=== PATIENT | male | born 1985 | race Caucasian/White ===

== ENCOUNTER 2023-11-10 18:45 | Emergency (ER) | payer OTHER ==
[2023-11-10 18:49] VITALS: BP 141/90; PULSE 76; RESP 18; TEMP 98; BMI 39.5
[2023-11-10] MEDS ORDERED: IBUPROFEN 600 MG TABLET (FP) PO ONE (19:51)
[2023-11-10] MEDS: IBUPROFEN 600 MG TABLET (FP) PO ONE (19:58)
== END 2023-11-10 20:45 | disposition home or self-care (01) ==
LOC: JER 18:45
DX: R07.89 Other chest pain (principal); M25.511 Pain in right shoulder; V49.40XA Driver injured in collision with unspecified motor vehicles in traffic accident, initial encounter
CPT/HCPCS: 71046-TC-FY; 93005; 93010; 99283-25